=== PATIENT | female | born 1945 | race Caucasian/White ===

== ENCOUNTER 2016-07-09 05:59 | Outpatient (CLI) | payer MEDICARE, OTHER ==
[~2016-07-09] VITALS: Ht 162.6 cm; Wt 88.6 kg
--- NOTE | ~2016-07-09 | CATH ---
Cardiac Diagnostic Report Demographics Patient Name KRISTOFER BASSETT Gender Female Date of 1945 Age 71 year(s) Patient Number [id number] Date of Study 07/09/2016 Visit Number [id number] Room Number G6399 [place] [id number] Ht 162.5 cm Wt 88.45 kg Referring Pierre Gan Oriana Primary Physician Physician PA Performing Kaylee Rosado MD Secondary Physician Physician Diagnostic Kaylee Rosado MD Assisting Physician Physician Interventional Physician Chemist Inorganic Physician Findings and Conclusions Diagnostic Findings and Conclusion Right ostial spasm Normal LV function. Normal right heart pressures Diagnostic Recommendations Medical Therapy Procedure Description The patient was brought to the diagnostic cardiac catheterization-EP laboratory in the fasting, non-sedated state. Informed consent was obtained in the written and verbal form after the risks and benefits were explained. The patient had no further questions and agreed to proceed. The planned puncture-incision site(s) were shaved and prepped with ChloraPrep and draped in the usual sterile manner. Conscious sedation, supplemental oxygen, and pain control medications were delivered by a registered nurse under physician guidance. Surface ECG rhythm, blood pressure measurement, and pulse oximetry were monitored throughout the procedure. Arterial access. The access site was infiltrated with lidocaine. The vessel was entered with the Seldinger technique. A sheath was advanced into the vessel and used for catheter placement. Venous access. The access site was infiltrated with lidocaine. The vessel was entered with the Seldinger technique. A sheath was advanced into the vessel and used for catheter placement. Selective left coronary angiography. A catheter was advanced into the left coronary vessel ostium under Fluoroscopic guidance. Contrast was injected by hand. Images were obtained in multiple projections. Selective right coronary angiography. A catheter was advanced into the right coronary vessel ostium under fluoroscopic guidance. Contrast was injected by hand. Images were obtained in multiple projections. Left heart catheterization with ventriculography. A catheter was advanced across the aortic valve to the left ventricle under fluoroscopic guidance. Resting hemodynamics were obtained. With the catheter at the left ventricular apex, contrast was injected. Images were obtained in SALINAS projections. Post-ventriculography LV pressure was obtained. The catheter was gradually withdrawn into the aorta with continuous pressure recording. Right heart catheterization. A Rewey Deshawn catheter was successfully advanced to the right atrium, right ventricle, pulmonary artery, and pulmonary artery wedge position under fluoroscopic guidance. Resting hemodynamics were obtained. Measurements included pressures, arterial and venous oxygen saturation samples, and cardiac output. The Rewey was removed without difficulty. Arterial artery hemostasis was achieved. The patient was transferred to a regular nursing floor via cart accompanied by a nurse. The patient left the laboratory in stable condition. Diagnostic Cath Status: Elective Procedure Procedure Type Diagnostic procedure:Ventriculogram:, Left, Angiography:, RHC w/Coronary Angio, C Indications: Non-invasive tests a cardiolite test positive, Chest pressure and Dyspnea with exertion. The procedure was explained in detail to the patient. Risks, complications and alternative treatments were reviewed. Written consent was obtained. Medications Reviewed with Patient prior to Procedure. Angiographic Findings Dominance: Mixed Cardiac Arteries and Lesion Findings LMCA: Normal (0% Stenosis).Large. LAD: Normal (0% Stenosis).Medium normal proximal. Distal small Diag 1 small. Diag 2 large normal LCx: Normal (0% Stenosis).Large co dominant normal OM 1 small. OM 2 large normal RCA: Normal (0% Stenosis).Large co dominant ostial spasm PL medium normal PDA medium normal Procedure Data Procedure Date Date: 07/09/2016Start: 08:12 AMEnd: 08:52 AM Entry Locations - Retrograde Percutaneous access was performed through the Right Femoral artery (Primary location). A 6 Fr sheath was inserted. Hemostasis was successfully obtained using Angio-Seal STS PLUS ([place]). Closure Comments: Deployed by Renu Bates.. - Antegrade Percutaneous access was performed through the Right Femoral vein. A 7 Fr sheath was inserted. Hemostasis was successfully obtained using Manual Compression. Closure Comments: 10 minutes of pressure held by Renu Bates.. Procedure Medications Order and Administration + + +-------+------+ !Time !Medication !Dosage !Route ! + + +-------+------+ !07/09/2016 08:09 AM !Versed !1 mg !I.V. ! + + +-------+------+ !07/09/2016 08:11 AM !Fentanyl !25 mcg !I.V. ! + + +-------+------+ Devices Used - A6 Fr. BS Angled Pigtail Diag. Catheterwas used for:Left ventriculography. - A6 Fr. BS JL 4 Diag. Catheterwas used for:Left coronary angiography. - A6 Fr. BS JR 4 Diag. Catheterwas used for:Right coronary angiography. Contrast Material - Isovue 72018 ml Fluoroscopy Time: Diagnostic: 4:24 minutes. Total: 4:24 minutes. Fluoroscopy Dose: Diagnostic: 533 mGy. Total: 533 mGy. Estimated Blood Loss: 5 ml. Medical History Performed Procedures and Imaging Results - Stress testing with SPECT MPIwas performed. Results were: Positive. Risk/Extent of ischemia was: Intermediate risk. Allergies - Codiene. - Other:(proproxyphen). Risk Factors The patient risk factors include:previous vascular surgery;treated hypercholesterolemia, treated hypertension, family history of premature CAD, last creatinine: 0.8 mg/dl, creatinine clearance: 90.06 ml/min, dyslipidemia and former tobacco use ( years not smokin). Admission Data Admission Date: 07/09/2016 Admission Time: 05:59 AM Admit Source: Other Insurance Payors: Medicare. Admission Medications + +------+-------+ + + + + !Medication!Dosage!Times !Last !Last !Administered !Comments ! ! ! !Per Day!Delivery !Delivery ! ! ! ! ! ! !Date !Time ! ! ! + +------+-------+ + + + + !Statin ! ! ! ! !Yes ! ! !(any) ! ! ! ! ! ! ! + +------+-------+ + + + + Clinical Evaluation Leading to Procedure - The patient's CAD presentation was assessed as: Stable angina. LVA Segment Contractility 1 - Normal 3 - Mild 5 - Severe 7 - Dyskinesis hypokinesis hypokinesis 2 - 4 - Moderate 6 - Akinesis 8 - Aneurysm Hypokinesis hypokinesis Hemodynamics Condition: Rest O2 Consumption: Estimated: 181.91Heart Rate: 76 bpm Oxygen Saturation +--------+-----+----+ +---+ + !Location!pCO2 !pO2 !% Saturation !Hgb!O2 Content ! +--------+-----+----+ +---+ + !SVC ! ! !68 ! ! ! +--------+-----+----+ +---+ + !RA ! ! !70 ! ! ! +--------+-----+----+ +---+ + !PCW ! ! !73.1 ! ! ! +--------+-----+----+ +---+ + !FA ! ! !89 ! ! ! +--------+-----+----+ +---+ + !IVC ! ! !78.8 ! ! ! +--------+-----+----+ +---+ + Pressures (mmHg) +-----+ + !Site !Pressure ! +-----+ + !RA !02/19 (7) ! +-----+ + !RV !05/02 ,10 ! +-----+ + !PCW !02/19 (8) ! +-----+ + !PCW !03/21 (9) ! +-----+ + !PA ! (20) ! +-----+ + !LV !146/- ! +-----+ + !PCW !12/ ) ! +-----+ + !LV !149/- ! +-----+ + !PCW !01/20) ! +-----+ + !LV !146/- ! +-----+ + !PCW !01/20) ! +-----+ + !LV !143/-12 ,15 ! +-----+ + !LV !145/-10 ,15 ! +-----+ + !AO !137/58 (94) ! +-----+ + !LV !145/-11 ,15 ! +-----+ + Cardiac Output + + +------+ !Time !Cardiac Output (l/min) !Use ! + + +------+ !07/09/2016 08:36 AM !5.44 !False ! + + +------+ !07/09/2016 08:37 AM !5.77 !True ! + + +------+ !07/09/2016 08:37 AM !5.92 !True ! + + +------+ !07/09/2016 08:38 AM !6 !False ! + + +------+ !07/09/2016 08:38 AM !5.73 !True ! + + +------+ Cardiac Output +-------+ + + + !Method !CO (l/min) !CI (l/min/m2) !SV (ml) ! +-------+ + + + !Mathew !5.1 !2.6 !66.96 ! +-------+ + + + !Thermal!5.076862 !3 !70.24 ! +-------+ + + + Valve Gradients and Areas + +--------+--------+--------+---------+ + + !Valve !Peak !Mean !Area !Index !Flow !Source ! + +--------+--------+--------+---------+ + + !Aortic !8 !12 !1.37 !0.71 !210.4 !Mathew ! + +--------+--------+--------+---------+ + + !Aortic !8 !12 !1.56 !0.81 !239.55 !Thermal ! + +--------+--------+--------+---------+ + + Shunts Oxygen Values O2 Capacity 187.68 O2 Consumption 181.91 Flows (l/min) Qs 5.3 Qe 40.42 Vascular Resistance (dynes x sec x cm-5) + +-----+-----+----+----+---------+-------+ !CO method !TSVR !SVR !TPVR!PVR !TPVR/TSVR!PVR/SVR! + +-----+-----+----+----+---------+-------+ !Mathew !18.35!17.07!3.86!2.1 !0.21 !0.12 ! + +-----+-----+----+----+---------+-------+ !Thermal !16.12!14.99!3.39!1.85!0.21 !0.12 ! + +-----+-----+----+----+---------+-------+ !Qp or Qs !17.66!16.43! ! ! ! ! + +-----+-----+----+----+---------+-------+ Discharge Data Discharge Date: 07/09/2016 Hospital Status: Outpatient Signatures dtt: Alonzo Page (cardio) dtd: 07/09/16 0812 Physician Self Edit
[~2016-07-09 05:59] MED LIST: ALEVE220 MG PO; AMLODIPINE BESY10 MG PO; DAILY VALUE1 EACH PO; FLAGYL TOP; HYDROCHLOROTHIA25 MG PO; K-TAB ER20 MEQ PO; LEVOTHYROXINE150 MCG PO; PLAQUENIL200 M1 PO; TESSALON PERLE100 MG PO; TURMERIC500 MG PO; TYLENOL EXTRA500 MG PO; ZETIA10 MG PO
[2016-07-09] MEDS ORDERED: TOPROL XL25 MG PO (09:36)
== END 2016-07-09 12:25 | disposition disaster alternative care site (69) ==
LOC: GPCU 05:59 → GPOC 05:59
PROC: 4A023N7 Measurement of Cardiac Sampling and Pressure, Left Heart, Percutaneous Approach (ICD-10-PCS; principal; 2016-07-09)
PROC: B216YZZ Fluoroscopy of Right and Left Heart using Other Contrast (ICD-10-PCS; 2016-07-09)
DX: R07.89 Other chest pain (principal); R06.09 Other forms of dyspnea; E78.5 Hyperlipidemia, unspecified; E03.9 Hypothyroidism, unspecified; E78.00 Pure hypercholesterolemia, unspecified; M79.7 Fibromyalgia; I10 Essential (primary) hypertension; Z87.891 Personal history of nicotine dependence; Z82.49 Family history of ischemic heart disease and other diseases of the circulatory system; Z79.899 Other long term (current) drug therapy
CPT/HCPCS: C1760; J0583; J1644; J2001; J2250; J3010; J7030; J7060